=== PATIENT | female | born 1995 | race Caucasian/White ===

== ENCOUNTER 2023-06-11 10:02 | Outpatient (CLI) | payer OTHER | END 2023-06-11 10:27 | disposition home or self-care (01) | LOC: NST 10:02 | PROVIDERS: ATTEND Obstetrics & Gynecology Gynecology | DX: Z34.83 Encounter for supervision of other normal pregnancy, third trimester (principal) ==

== ENCOUNTER 2023-06-11 12:30 | Inpatient (IN) | payer OTHER ==
[~2023-06-11] VITALS: Ht 167.6 cm; Wt 77.1 kg
[2023-06-25] MEDS ORDERED: PRENATAL + DHA1 EAC1 PO (23:03)
[2023-06-28 09:09] LABS: HEMATOCRIT 33.9 % (36.0-45.00); MEAN CELL VOLUME 95.8 fL (80.00-100.00); MEAN CORPUSCULAR HEMOGLOBIN 33.9 pg (27.00-32.0); MEAN CORPUSCULAR HGB CONC 35.3 g/dl (32.0-36.0); PLATELET COUNT 219 K/uL (150-450); RED BLOOD COUNT 3.54 M/uL (4.00-6.00); RED CELL DISTRIBUTION WIDTH 13.6 % (11.5-14.5)
[2023-06-28 09:34] LABS: ALBUMIN 2.7 gm/dL (3.4-5.0); BILIRUBIN TOTAL 0.6 mg/dL (0.3-1.2); CREATININE SERUM 0.56 mg/dL (0.55-1.02); GFR 127.99; GLOBULINA 3.7 G/DL (2.4-3.5); POTASSIUM 3.75 mEq/L (3.5-5.1); TOTAL PROTEIN 6.4 gm/dL (6.4-8.2)
== END 2023-06-30 13:10 | disposition home or self-care (01) | DRG 807 ==
LOC: LDR 06-28 06:26 → OB/GYN 06-28 16:12 → SURG 06-30 12:29 → OB/GYN 06-30 13:10 → SURG 06-30 15:52
PROVIDERS: ADMIT Obstetrics & Gynecology; ATTEND Obstetrics & Gynecology
PROC: 10E0XZZ Delivery of Products of Conception, External Approach (ICD-10-PCS; principal; 2023-06-28)
PROC: 0W8NXZZ Division of Female Perineum, External Approach (ICD-10-PCS; 2023-06-28)
PROC: 4A1HXCZ Monitoring of Products of Conception, Cardiac Rate, External Approach (ICD-10-PCS; 2023-06-28)
DX: O80 Encounter for full-term uncomplicated delivery (principal); Z37.0 Single live birth; Z3A.39 39 weeks gestation of pregnancy; Z20.822 Contact with and (suspected) exposure to COVID-19

== ENCOUNTER 2023-06-22 12:12 | Outpatient (CLI) | payer OTHER | END 2023-06-22 13:59 | disposition home or self-care (01) | LOC: NST 12:12 | PROVIDERS: ATTEND Obstetrics & Gynecology | DX: Z34.83 Encounter for supervision of other normal pregnancy, third trimester (principal) ==

== ENCOUNTER 2023-06-25 21:46 | Outpatient (CLI) | payer OTHER ==
[2023-06-25] MEDS ORDERED: PRENATAL + DHA1 EAC1 PO (23:03)
[2023-06-25 23:30] LABS: URINE APPEARANCE Clear; URINE BILIRRUBIN Negative (NEGATIVE); URINE BLOOD Negative; URINE COLOR Yellow; URINE GLUCOSE Negative (NEGATIVE); URINE LEUKOCYTE Negative; URINE NITRATE Negative; URINE PROTEIN Negative (NEGATIVE); URINE UROBILINOGEN 0.2 E.U./dl
[2023-06-25 23:33] LABS: URINE BACTERIA 657.5 uL (0.0-1933); URINE EPITHELIAL CELLS 7.8 uL (0.0-38.8); URINE RBC 2.5 uL (0.0-20.8); URINE WBC 16.8 uL (0.0-23.2)
[2023-06-25 23:36] LABS: HEMATOCRIT 31.2 % (36.0-45.00); HEMOGLOBIN 11.3 g/dL (12.0-15.00); MEAN CELL VOLUME 94.7 fL (80.00-100.00); MEAN CORPUSCULAR HEMOGLOBIN 34.3 pg (27.00-32.0); MEAN CORPUSCULAR HGB CONC 36.3 g/dl (32.0-36.0); PLATELET COUNT 215 K/uL (150-450); RED BLOOD COUNT 3.29 M/uL (4.00-6.00); RED CELL DISTRIBUTION WIDTH 13.7 % (11.5-14.5)
[2023-06-25 23:44] LABS: INR 0.95; PARTIAL THROMBOPLASTIN TIME 24.4 SECONDS (22.0-34.0)
[2023-06-25 23:49] LABS: ALBUMIN 2.6 gm/dL (3.4-5.0); BILIRUBIN TOTAL 0.55 mg/dL (0.3-1.2); CALCIUM 9.5 mg/dL (8.5-10.1); CREATININE SERUM 0.49 mg/dL (0.55-1.02); GFR 149.31; GLOBULINA 3.4 G/DL (2.4-3.5); POTASSIUM 3.41 mEq/L (3.5-5.1)
== END 2023-06-26 10:41 | disposition home or self-care (01) ==
LOC: OBS/DEL 21:46
PROVIDERS: ATTEND Obstetrics & Gynecology
DX: O26.893 Other specified pregnancy related conditions, third trimester (principal); Z3A.39 39 weeks gestation of pregnancy; Z20.822 Contact with and (suspected) exposure to COVID-19